=== PATIENT | male | born 1965 | race Caucasian/White ===

== ENCOUNTER 2017-11-30 22:41 | Observation (INO) | payer OTHER ==
[~2017-11-30] VITALS: Ht 193 cm; Wt 137.4 kg
[2017-11-30 22:55] VITALS: Ht 193 cm; Wt 137.4 kg
[2017-12-01 00:12] LABS: BASOPHIL % 0.7 % (0-2); PLATELET COUNT 274 x10^3mcL (130-400)
[2017-12-01 00:13] LABS: CARBON DIOXIDE 30.2 mmol/L (21-32); CHLORIDE SERUM 104 mmol/L (98-107); CREATININE SERUM 1.2 mg/dL (0.7-1.3); GFR1 > 60 mL/min; GLUCOSE SERUM 142 mg/dL (74-106); POTASSIUM SERUM 4.5 mmol/L (3.5-5.1); SODIUM SERUM 140 mmol/L (136-145)
[2017-12-01 00:22] LABS: ALBUMIN 3.5 g/dL (3.4-5.0); ALKALINE PHOSPHATASE 69 U/L (46-116); ALT/SGPT 32 U/L (16-63); AST/SGOT 20 U/L (15-37); BILIRUBIN TOTAL 0.3 mg/dL (0.20-1.00); TOTAL PROTEIN, SERUM 7.3 g/dL (6.4-8.2)
[2017-12-01 02:44] VITALS: BP 121/83
[2017-12-01 02:57] LABS: CHOLESTEROL/HDL RATIO 4.8; PHOSPHOROUS 3.4 mg/dL (2.5-4.9)
[2017-12-01 03:00] LABS: T3 TOTAL 1.11 ng/mL
[2017-12-01 03:05] LABS: FREE T4 1.1 ng/dL (0.76-1.46); FREE THYROXINE INDEX 2.8 ug/dL (1.4-4.5); T4(THYROXINE) 8.1 ug/dL (4.7-13.3)
[2017-12-01 03:19] VITALS: BP 121/83
[2017-12-01 05:39] VITALS: BP 121/73
[2017-12-01 06:46] LABS: microscopic required? NO
[2017-12-01 08:08] LABS: UA SPECIFIC GRAVITY 1.025 (1.005-1.035); urine erythrocyte NEGATIVE (NEGATIVE)
[2017-12-01 08:19] LABS: AMPHETAMINE QUAL UR NONE DETECTED (NEG <=1000)
[2017-12-01 09:15] VITALS: BP 109/77
[2017-12-01] MEDS ORDERED: ONDANSETRON4 M3 PO (10:26)
[2017-12-01 11:57] VITALS: BP 109/77
== END 2017-12-01 12:42 | disposition home or self-care (01) | DRG 74 ==
LOC: ED 22:41 → DU 12-01 01:29
PROVIDERS: Emergency Medicine; Family Medicine
DX: G90.9 Disorder of the autonomic nervous system, unspecified (principal); I73.89 Other specified peripheral vascular diseases; G47.33 Obstructive sleep apnea (adult) (pediatric); E78.2 Mixed hyperlipidemia; Z68.37 Body mass index [BMI] 37.0-37.9, adult
CPT/HCPCS: 83880; 84439; 85378; G0378; J7030; Q0092